=== PATIENT | male | born 1995 | race Caucasian/White ===

== ENCOUNTER 2016-06-25 14:13 | Emergency (ER) | payer OTHER ==
[~2016-06-25] VITALS: Ht 170.2 cm; Wt 61.2 kg
--- NOTE | 2016-06-25 15:08 | ED UPPER/LOWER EXTREMITY COMPL ---
History of Present Illness General Chief Complaint: Lower Extremity Problems Stated Complaint: LT LEG PAIN,NO KNOWN INJ Source: patient Exam Limitations: no limitations Vital Signs & Intake/Output Vital Signs & Intake/Output Vital Signs Date Time Temp Pulse Resp B/P Pulse O2 O2 Flow FiO2 Ox Delivery Rate 06/25 1651 98.1 98 18 138/70 98 Room Air 06/25 1428 97.7 100 18 140/93 98 Room Air Room Air Allergies Coded Allergies: No Known Allergies (06/25/16) Reconcile Medications No Known Home Medications Triage Note: TRIAGE: 20 Y/O MALE PRESENTS C/O 05/03 LEFT CALF PAIN X 1 WEEK. DENIES KNOWN INJURY OR TRAUMA TO REGION. ABLE TO AMBULATE INDEPENDENTLY WITHOUT ASSISTANCE. DENIES GOING TO VISIT PCP SINCE ONSET OF PAIN. Triage Nurses Notes Reviewed? yes Onset: Abrupt Duration: intermittent Timing: recent history Severity: moderate Severity Numbers: 5 Method of Injury: unknown HPI: Patient is a 20-year-old male with an unremarkable past medical history presents emergency and that one week ago patient was woke up and his sleep with acute onset of throbbing pain to the left calf region where he states that he stood up and walked around for approximately 20 minutes and symptoms resolved however patient has noted intermittent left calf pain since. Patient is concerned of DVT. Denies any mechanism injury states that the symptoms are paroxysmal nature. Patient has not taken any medications for symptoms. Denies any history DVT or PE denies any extremity swelling. Denies any hemoptysis recent travel or recent surgery (DOLORES AMARAL) Past History Travel History Traveled to [place] past 21 day No Medical History Any Pertinent Medical History? none Neurological: NONE EENT: NONE Cardiovascular: NONE Respiratory: NONE Gastrointestinal: NONE Hepatic: NONE Renal: NONE Musculoskeletal: NONE Psychiatric: NONE Endocrine: NONE Blood Disorders: NONE Cancer(s): NONE HOTEL DIRECTOR/Reproductive: NONE Surgical History Surgical History: non-contributory Psychosocial History What is your primary language Montenegrin Tobacco Use: Never used ETOH Use: denies use Illicit Drug Use: denies illicit drug use Family History Hx Contributory? No (DOLORES AMARAL) Review of Systems Review of Systems Constitutional: Reports: no symptoms. EENTM: Reports: no symptoms. Respiratory: Reports: no symptoms. Cardiovascular: Reports: no symptoms. Gastrointestinal/Abdominal: Reports: no symptoms. Genitourinary: Reports: no symptoms. Musculoskeletal: Reports: see HPI, muscle pain. Skin: Reports: no symptoms. Neurological/Psychological: Reports: no symptoms. Hematologic/Endocrine: Reports: no symptoms. Immunological: Reports: no symptoms. All Other Systems: Reviewed and Negative (DOLORES AMARAL) Physical Exam Physical Exam General Appearance: well developed/nourished, no apparent distress, alert, comfortable Neurologic/Tendon: normal sensation, normal motor functions, normal tendon functions, responds to pain, no evidence tendon injury, no pulse deficit Skin: intact, normal color, warm/dry Comments: Well-developed well-nourished person in no acute distress HEENT: Normal EENT exam,. Neck: Supple, no lymphadenopathy, normal range of motion without pain or tenderness Back: Nontender, no CVA tenderness. Cardiovascular: Regular rate and rhythms no murmurs rubs or gallops, normal JVP Respiratory: Chest nontender. No respiratory distress.breath sounds clear to auscultation bilaterally Abdomen: Soft, nontender nondistended, no appreciable organomegaly. Normal bowel sounds. No ascites Extremity: No edema, no calf tenderness to palpation, normal and equal pulses. Left knee-normal inspection nontender full active range of motion Left ankle and foot normal inspection nontender full active range of motion noted pedal pulses +2 No swelling dermatomes intact 5 out of 5 resisted range of motion noted with dorsiflexion plantar flexion inversion eversion, NO PAIN, Neuro: Alert oriented x3, motor sensory normal, Skin: No appreciable rash on exposed skin, skin is warm and dry. Psych: Mood and affect is normal, memory and judgment is normal. (DOLORES AMARAL) Progress Differential Diagnosis: arterial insufficiency, cellulitis, compartment syndrome , contusion, dislocation, DVT, fracture, gout, septic arthritis, sprain, tendon injury Plan of Care: Orders Procedure Date/time Status US-UNILATERAL VENOUS DOPPLER 06/25 1522 Active Patient's left lower extremity was neurovascularly intact No concerns of DVT at THIS TIME Patient was given primary care doctors up in the emergency room follow-up. Patient has normal steady gait on discharge (DOLORES AMARAL) Diagnostic Imaging: Viewed by Me: Ultrasound. Radiology Impression: no acute abnormality Comments: PATIENT: CLAUDY ELLSWORTH PRESENT AGE: 20 PATIENT ACCOUNT NO: [id number] : 93 LOCATION: [facility] ORDERING PHYSICIAN: DOLORES JACKSON SERVICE DATE: 06/25/16 EXAM TYPE: US - US-UNILATERAL VENOUS DOPPLER EXAMINATION: US TRIPLEX LOWER EXTREMITY, LEFT CLINICAL INFORMATION: Left leg pain and swelling. COMPARISON: None TECHNIQUE: Color-flow triplex imaging with spectral analysis and compression Doppler were performed on the left lower extremity. FINDINGS: The left common femoral vein is compressible and exhibits a normal phasic waveform; this suggests that the iliac veins are widely patent above. Within the proximal thigh, the visualized profunda femoris vein is patent and the examined greater saphenous vein and saphenofemoral junction are normal. Superficial femoral vein is patent in the proximal, mid and distal thigh. Popliteal vein appears normal to the level of the trifurcation, and the visualized calf veins are unremarkable. No evidence of Walsh's cyst. IMPRESSION: No evidence of deep vein thrombosis in the left lower extremity. (DOLORES AMARAL) Departure Departure Disposition: HOME OR SELF CARE Condition: Stable Clinical Impression Primary Impression: Pain of left calf Referrals: PATIENT HAS NO PRIMARY CARE DR (PCP/Family) Additional Instructions: As discussed if symptoms worsen return to the emergency room. YOU HAVE BEEN given a primary care doctor's appointment in the emergency room, please go to his appointment for follow-up and establish a doctor. Departure Forms: Customer Survey General Discharge Information Prescriptions: Current Visit Scripts No Known Home Medications (DOLOERS AMARAL) PA/FIELD REVIEWER Co-Sign Statement Statement: ED Attending supervision documentation- [] I saw and evaluated the patient. I have also reviewed all the pertinent lab results and diagnostic results. I agree with the findings and the plan of care as documented in the PA's/FIELD REVIEWER's documentation. x I have reviewed the ED Record and agree with the PA's/FIELD REVIEWER's documentation. [] Additions or exceptions (if any) to the PAs/FIELD REVIEWER's note and plan are summarized below: [] (RADHA RICE,MARCY)
--- NOTE | 2016-06-25 16:28 | ULTRASOUND REPORT ---
EXAMINATION: US TRIPLEX LOWER EXTREMITY, LEFT CLINICAL INFORMATION: Left leg pain and swelling. COMPARISON: None TECHNIQUE: Color-flow triplex imaging with spectral analysis and compression Doppler were performed on the left lower extremity. FINDINGS: The left common femoral vein is compressible and exhibits a normal phasic waveform; this suggests that the iliac veins are widely patent above. Within the proximal thigh, the visualized profunda femoris vein is patent and the examined greater saphenous vein and saphenofemoral junction are normal. Superficial femoral vein is patent in the proximal, mid and distal thigh. Popliteal vein appears normal to the level of the trifurcation, and the visualized calf veins are unremarkable. No evidence of Walsh's cyst. IMPRESSION: No evidence of deep vein thrombosis in the left lower extremity.
[2016-06-25 16:51] VITALS: BP 138/70
== END 2016-06-25 16:51 ==
LOC: ERH 14:13
DX: M79.662 Pain in left lower leg (principal)